=== PATIENT | female | born 2000 | race African-American/Black ===

== ENCOUNTER 2020-04-28 07:13 | Emergency (ER) | payer OTHER ==
[~2020-04-28] VITALS: Ht 157.5 cm; Wt 69.9 kg
--- NOTE | 2020-04-28 07:29 | NUR ---
PT PRESENTS TO ED WTIH DIFFUSE ABDOMINAL PAIN. REPORTS HX OF IBS AND STOMACH PAINS. THIS AM AT N/V PRECIPITATED BY ETOH INGESTION. PT DENIES REGULAR USE OF ETOH. PT UNCERTAIN TO AMOUNT OF ETOH LAST NIGHT. PT FROM [facility], RETURNING HOME TODAY. RESPIRATIONS EVEN AND UNLABORED. ERPA IN TO ASSESS PT. AWAITING ORDERS.
[2020-04-28] MEDS ORDERED: FAMOTIDINE 20 MG/2 ML IV ONE (07:30)
[2020-04-28] MEDS ORDERED: MAALOX/HYOSCYAMINE/LIDOCAINE 45 ML BTL PO ONE (07:30)
[2020-04-28] MEDS ORDERED: ONDANSETRON 2MG/ML, 2ML IVPush ONE (07:30)
[2020-04-28] MEDS ORDERED: SODIUM CHLORIDE FLUSH 10ML SYR IVF ONE (07:30)
[2020-04-28] MEDS ORDERED: SODIUM CHLORIDE 0.9% 1,000ML IVBOLUS ONE (07:30)
[2020-04-28] MEDS ORDERED: ONDANSETRON 2MG/ML, 2ML ONE (07:31)
[2020-04-28] MEDS ORDERED: MAALOX/HYOSCYAMINE/LIDOCAINE 45 ML BTL ONE (07:31)
[2020-04-28] MEDS ORDERED: FAMOTIDINE 20 MG/2 ML ONE (07:32)
--- NOTE | 2020-04-28 07:58 | NUR ---
IV START, IVF INFUSING AND MEDICATIONS ADMINISTERED PER EMAR. EXTRA BLANKETS PROVIDED FOR PT COMFORT. LABS DRAWN, LABELLED AND SENT TO LAB. PT INSTRUCTED NPO AT THIS TIME.
[2020-04-28 08:06] LABS: BASOPHILS % (AUTO) 0 % (0-1); EOSINOPHILS % (AUTO) 1 % (1-7); LYMPHOCYTES % (AUTO) 11 % (22-44); MEAN CORPUSCULAR HEMOGLOBIN 31.3 pg (27.0-34.8); MEAN CORPUSCULAR HGB CONC 33.1 g/dL (32.4-35.8); MEAN PLATELET VOLUME 8.2 fL (7.4-10.4); MONOCYTES % (AUTO) 6 % (2-9); NEUTROPHILS % (AUTO) 83 % (42-75); PLATELET COUNT 249 x10^3/uL (130-400); RED BLOOD COUNT 4.28 x10^6/uL (3.82-5.3); RED CELL DISTRIBUTION WIDTH 14.4 % (9.6-15.2)
[2020-04-28 08:13] LABS: ALBUMIN 4.3 g/dL (3.4-5.0); ANION GAP 7 mmol/L (5-15); CALCIUM 9.1 mg/dL (8.5-10.1); CHLORIDE 106 mmol/L (98-107); CREATININE 1.08 mg/dL (0.55-1.02)
[2020-04-28 08:27] LABS: MD SCAN
[2020-04-28 09:40] VITALS: BP 111/78
== END 2020-04-28 09:45 | disposition home or self-care (01) ==
LOC: ED 08:21
DX: K29.20 Alcoholic gastritis without bleeding (principal); R11.2 Nausea with vomiting, unspecified; F10.10 Alcohol abuse, uncomplicated; Y90.9 Presence of alcohol in blood, level not specified
CPT/HCPCS: 36415; 80048; 80320; 82040; 84703; 85025; 96361; 96374; 96375; 99284; J2405; J7030; G0480

== ENCOUNTER 2020-12-05 08:28 | Emergency (ER) | payer OTHER ==
[~2020-12-05] VITALS: Ht 157.5 cm; Wt 77.3 kg
[2020-12-05 08:30] VITALS: BP 109/76
--- NOTE | 2020-12-05 08:34 | NUR ---
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
[2020-12-05] MEDS ORDERED: ONDANSETRON ODT 4 MG ONE (09:04)
--- NOTE | 2020-12-05 09:10 | NUR ---
PT REPORTS OF N/V, ABD PAIN AFTER HEAVY DRINKING LAST NIGHT. PT WITH MULTIPLE REQUESTS IMMEDIATELY-PILLOW, BLANKET, SOCKS, MEDS,WATER. PT PROVIDED ZOFRAN ODT, ORDERED PER PROTOCOL. ALL OTHER ITEMS PROVIDED EXCEPT WATER-PT TOLD NO PO FLUIDS UNTIL ERP ORDER AND N/V CEASED. PT STATES SHE HAS CHRONIC ABD PAIN WITH N/V, BINGE DRINKING, AND ANXIETY DISORDER. PT TAKES CITALOPRAM AND LEXAPRO AT HOME. PT AMBULATORY TO [facility], PROVIDING UA. CALL LIGHT WITHIN REACH.
[2020-12-05] MEDS ORDERED: SODIUM CHLORIDE 0.9% 1,000ML IVBOLUS ONE (09:30)
[2020-12-05] MEDS ORDERED: LORazepam 2 MG/ML, 1ML IVPush PRN (09:30)
[2020-12-05] MEDS ORDERED: SODIUM CHLORIDE FLUSH 10ML SYR IVF ONE (09:30)
[2020-12-05] MEDS ORDERED: ONDANSETRON ODT 4 MG PO ONE (09:30)
[2020-12-05] MEDS ORDERED: ONDANSETRON 2MG/ML, 2ML IVPush ONE (09:30)
[2020-12-05] MEDS ORDERED: LORazepam 2 MG/ML, 1ML ONE (10:04)
[2020-12-05 10:27] LABS: BASOPHILS % (AUTO) 0 % (0-1); EOSINOPHILS % (AUTO) 1 % (1-7); LYMPHOCYTES % (AUTO) 14 % (22-44); MEAN CORPUSCULAR HEMOGLOBIN 31.6 pg (27.0-34.8); MEAN CORPUSCULAR HGB CONC 33.8 g/dL (32.4-35.8); MEAN PLATELET VOLUME 8.6 fL (7.4-10.4); MONOCYTES % (AUTO) 5 % (2-9); NEUTROPHILS % (AUTO) 80 % (42-75); PLATELET COUNT 224 x10^3/uL (130-400); RED BLOOD COUNT 4.28 x10^6/uL (3.82-5.3); RED CELL DISTRIBUTION WIDTH 13.7 % (9.6-15.2)
[2020-12-05 10:38] LABS: ALBUMIN 4.3 g/dL (3.4-5.0); ANION GAP 8 mmol/L (5-15); CALCIUM 9.5 mg/dL (8.5-10.1); CHLORIDE 109 mmol/L (98-107)
[2020-12-05 10:54] LABS: ALANINE AMINOTRANSFERASE 41 U/L (12-78); ALKALINE PHOSPHATASE 62 U/L (45-117); BILIRUBIN,TOTAL 0.2 mg/dL (0.2-1.0); CREATININE 0.96 mg/dL (0.55-1.02); TOTAL PROTEIN 8.3 g/dL (6.4-8.2)
--- NOTE | 2020-12-05 11:18 | NUR ---
PT USED CALL LIGHT. PT STATES N/V GONE, WANTS IV OUT. IV DISCONTINUED, PT FOR RECHECK.
== END 2020-12-05 12:18 | disposition home or self-care (01) ==
LOC: ED 09:47
DX: K29.20 Alcoholic gastritis without bleeding (principal); F10.10 Alcohol abuse, uncomplicated; F41.1 Generalized anxiety disorder; R11.2 Nausea with vomiting, unspecified; Y90.0 Blood alcohol level of less than 20 mg/100 ml
CPT/HCPCS: 36415; 80053; 80320; 83690; 85025; 96361; 96374; 99283; J2060; J7030; Q0162; G0480